=== PATIENT | male | born 1970 | race Hispanic/Latino ===

== ENCOUNTER 2016-07-20 23:19 | Emergency (ER) | payer SELFPAY ==
[2016-07-20] MEDS ORDERED: MORPHINE IV ONE (23:56)
[2016-07-20] MEDS ORDERED: ZOFRAN IV ONE (23:57)
[2016-07-21] MEDS ORDERED: DILAUDID ONE (03:45)
[2016-07-21] MEDS ORDERED: VALIUM ONE (03:45)
[2016-07-21] MEDS ORDERED: ANCEF/NS 1 GM/50 ML 1 GM/50 ML BAG IV ONE (04:00)
[2016-07-21] MEDS ORDERED: VALIUM IV ONE (04:00)
[2016-07-21] MEDS ORDERED: DILAUDID IV ONE ×2 (04:00→05:35)
[2016-07-21] MEDS ORDERED: NACL 0.9% 1000 ML 1,000 ML ONE (04:47)
[2016-07-21] MEDS ORDERED: NACL 0.9% 1000 ML 1,000 ML IV ONE (04:48)
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
[2016-07-21 08:39] VITALS: BP 131/80
--- NOTE | 2016-07-21 09:55 | XRay Report ---
RIGHT ANKLE THREE VIEWS: 07/21/16 CLINICAL: Injury with pain and swelling. FINDINGS: Displaced fractures of the lateral malleolus and the medial malleolus as well as a posterior tibial fracture.There is dislocation at the tibiotalar joint with lateral displacement of the talus. Medial and lateral soft tissue swelling. No foreign body or soft tissue air. IMPRESSION: Acute traumatic displaced closed trimalleolar fracture with tibiotalar dislocation.
== END 2016-07-21 08:39 | disposition other institution (70) ==
LOC: ED 23:19
DX: S82.851A Displaced trimalleolar fracture of right lower leg, initial encounter for closed fracture (principal); I10 Essential (primary) hypertension; I50.9 Heart failure, unspecified; E11.9 Type 2 diabetes mellitus without complications; F17.200 Nicotine dependence, unspecified, uncomplicated; F12.10 Cannabis abuse, uncomplicated; Y08.89XA Assault by other specified means, initial encounter; Y93.9 Activity, unspecified; Y92.9 Unspecified place or not applicable; Y99.9 Unspecified external cause status
CPT/HCPCS: 73610; 82962; 96365; 96375; 99285; J0690; J1170; J2270; J2405; J3360; J7030